=== PATIENT | male | born 1960 | race Two or more races ===

== ENCOUNTER → 2017-11-12 | Outpatient (CLI) | payer OTHER, BC ==
[~2017-11-12] MED LIST: OMNIPAQUE 350 MG/ML, 150 ML BOTTLE ONE
== END | disposition home or self-care (01) ==
LOC: RAD 14:43
PROVIDERS: ATTEND Physician Assistant
DX: N28.1 Cyst of kidney, acquired (principal)
CPT/HCPCS: 74178; Q9967